=== PATIENT | male | born 1990 | race Caucasian/White ===

== ENCOUNTER 2023-03-22 15:41 | Emergency (ER) | payer MEDICAID, SELFPAY ==
[2023-03-22] VITALS (54 sets, daily range): BP systolic 116–224; BP diastolic 69–112; PULSE 71–95; RESP 0–24; TEMP 36.5; O2SAT 91–98
--- NOTE | 2023-03-22 15:30 | RT.EKG_ITS ---
APPROVED REPORT Exam: Resting ECG Reason for Exam: seizure Patient Location: E HR:87 bpm ECG Measurements Heart Rate 87 AXIS OK 190 P 42 QRSd 94 QRS 46 QT 429 T 178 QTc 517 Conclusion Sinus rhythm...normal P axis, V-rate 60- 99 Probable left atrial enlargement...P >50mS, <-0.10mV V1 Repol abnrm suggests ischemia, lateral leads...ST dep, T neg, I aVL V5 V6 Prolonged QT interval...QTc >488mS. Sinus. Normal axis. Less than 1mm ST depression in V6. No STEMI. I have reviewed and interpreted ECG and agree with software generated interpretation.
--- NOTE | 2023-03-22 15:30 | DI.CT_ITS ---
Exam(s) CT HEAD WO EXAM: CT HEAD WO CLINICAL HISTORY: seizure, recent bleed. TECHNIQUE: Imaging Protocol: Axial computed tomography images with coronal and sagittal reformatted images were created and reviewed COMPARISON: CR XR CHEST 1V IN DI DEPT from 03/22/2023 FINDINGS: Ventricles and Extra axial spaces: Normal in size and morphology for the patient's age. Hemorrhage: None. Cerebral parenchyma: There is an area of encephalomalacia involving the right parietal and right temp oral lobe. No evidence of an acute infarct is seen. Midline shift: None. Brainstem/Cerebellum: Normal. Calvarium: The patient has had a prior right parietal temporal craniotomy. No evidence of an acute c alvarial fracture. Visualized Paranasal sinuses/Mastoids: Clear. Soft Tissues: Unremarkable. IMPRESSION: 1. No acute intracranial process. 2. Findings were discussed with Dr. Nava at 4:10 p.m. on 03/22/2023. RADIATION DOSE DELIVERED: 838.85mGy.cm Total DLP DATA REPOSITORY: All CT scans at this facility are submitted to the National Radiology Data Registry (NRDR) Dose Index Registry (DIR) with the [employer] (ACR). RADIATION OPTIMIZATION: All CT scans at this facility use at least one of these dose optimization te chniques: automated exposure control; mA and/or kV adjustment per patient size (includes targeted exa ms where dose is matched to clinical indication); or iterative reconstruction.
--- NOTE | 2023-03-22 15:43 | DI.RAD_ITS ---
Exam(s) XR CHEST 1V IN DI DEPT EXAM: XR CHEST 1V IN DI DEPT CLINICAL HISTORY: seizure TECHNIQUE: 2D digital imaging was performed of the chest. One image was obtained. An AP view was ob tained. COMPARISON: No exams were available for comparison FINDINGS: MEDIASTINUM: Normal. HEART: Status post CABG. PULMONARY VASCULATURE: Normal. LUNGS: Clear. PLEURAL SPACE: No pleural effusion or pneumothorax. BONE:Within normal limits for the patient's age. Sternal wires are in place. OTHER FINDINGS:Normal. IMPRESSION: 1. No acute pulmonary findings. 2. Findings were discussed with Dr. Nava at 4:10 p.m. on 03/22/2023. DATA REPOSITORY: RADIATION DOSE DELIVERED:
--- NOTE | 2023-03-22 15:51 | W.ED.GENAD ---
Discharge Plan Disposition Specific Acute Inpt Facility: [facility] Discharge Details Chief Complaint: Seizure Clinical Impression: Seizure, Elevated blood pressure reading ED Provider: Norma Bosch Home Meds and New Rx's Prescriptions: No Action valsartan 160 mg Capsule 160 mg PO BID atorvastatin 80 mg Tablet 80 mg PO DAILY carvedilol 25 mg Tablet 37.5 mg PO BID diphenhydramine HCl 50 mg Tablet 50 mg PO QHS levetiracetam 500 mg Tablet 500 mg PO BID fexofenadine 60 mg Capsule 60 mg PO DAILY isosorbide dinitrate 30 mg Tablet 30 mg PO DAILY clonidine HCl 0.2 mg Tablet 0.2 mg PO PRN PRN lorazepam 0.5 mg Tablet 1 mg PO PRN PRN torsemide 100 mg Tablet 100 mg PO DAILY isosorbide dinitrate 40 mg Tablet 40 mg PO DAILY doxazosin 4 mg Tablet 4 mg PO QHS Nephro-Gagan 0.8 mg Tablet 1 tab PO DAILY hydralazine 50 mg Tablet 50 mg PO TID glucagon 1 mg Recon Soln 1 mg IM PRN PRN ondansetron 4 mg Tablet,Disintegrating 4 mg PO PRN PRN insulin aspart U-100 100 unit/mL (3 mL) Insulin Pen See Rx Instructions .ROUTE .COMPLEX Rx Instructions: sliding scale escitalopram oxalate 5 mg Tablet 10 mg PO QHS senna 8.6 mg Capsule 17.2 mg PO PRN PRN insulin glargine 100 unit/mL (3 mL) Insulin Pen 10 unit SUBCUT DAILY sevelamer carbonate 800 mg Tablet 2,400 mg PO TID cholecalciferol (vitamin D3) 50 mcg (2,000 unit) Capsule 50 mcg PO DAILY melatonin 5 mg Capsule 5 mg PO QHS aflibercept 2 mg/0.05 mL Solution 2 mg INTRAVITREAL Q6W (DME) Omnipod Classic PDM Kit(Gen 3) [facility] [place]ANEOUS Discharge Data Discharge Date/Time-TO BE ENTERED AT DEPARTURE: 03/22/23 21:26 Medical Decision Making Patient is a 32-year-old male presenting unresponsive and passenger side of mom's vehicle after having witnessed seizure. Patient does have a past medical history that includes seizures. Mom states that he has not had any recently. Past medical history is also pertinent for type 1 diabetes, CAD with CABG 2 years ago, CKD, underwent dialysis just prior to arrival, hypertension, hemorrhagic stroke. Per mom's report, mom and are both very involved in patient's medical care and he has been receiving his medications per typical regimen. We are getting this from [facility]. At the time I first saw the patient, he was awake and responsive but clearly postictal and confused with some bleeding at the corner of his mouth. No incontinence. 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 On exam, patient appears acutely ill. When in the car, he was able to open eyes to verbal stimuli but was not able to able to respond verbally. Did have some blood in sputum in the left corner of his mouth. No loss of bladder control noted. He does have a curling to the left hand suggesting weakness which mom states is chronic associated with his previous hemorrhagic stroke. Patient was a full assist out of the car with nursing staff onto a stretcher. Glucose was immediately checked and found to be 240 which is baseline for the patient. No respiratory distress was appreciated, lungs are clear and he is oxygenating well. He does seem to be waking and is able to protect his own airway. Patient was initially quite anxious and upset, confused in his postictal state. No evidence of IVDU, mom denies any alcohol or drug use. Patient did not fall, was seated with mom holding his head up while driving to the hospital, no injury. Mom states that the patient had reported headache prior to the onset of the seizure, I am concerned for recurrence of his hemorrhagic stroke particularly given timing. Will send patient for emergently to CT for Noncon head imaging. We will also obtain chest x-ray. Also considered potential ACS, hypertensive emergency, DKA, breakthrough seizure, medication noncompliance versus other. EKG obtained and reviewed by Dr. Nava with no acute ischemic etiology noted. Consulted with pharmacy regarding keppra after dialysis. Per mom, no post-dialysis Keppra is given routinely. UTD recommend 250mg post-dialysis, will discuss with neurology. Reviewed notes from [facility] where patient was admitted in mid December for DKA and altered mental status. Patient was noted to have difficult to control hypertension and was given nicardipine in the ED but transition to oral antihypertensives at the time of discharge. Patient's cerebral hemorrhage was in October 2022 with cranioplasty in December of this year. We will give patient 1 g Keppra now. Patient also received total of 2 mg of IV Ativan to be able to stay, for CT. At this was not given for recurrent seizure. CT scan reviewed by myself as well as radiologist with no acute abnormality noted. Imaging has been pushed to [facility] and [facility]. Glucose uptrending to 350. They gave corrective dose of 1 unit for every 30 points over 130, will give patient 7 units subcu NovoLog. This is his typical home regimen that has worked well for him historically. Patient is beginning to clear and is answering my questions although speech is still slightly slurred and quiet. Contacted by lab, has lactate of 6.9. Consult request to [facility] neurology after seizure, this is where patient has received neurologic care historically. His nephrology team is at [facility] and they advised that typically these patients are admitted at their dialysis home, will reach out to [facility] Spoke with Dr. Bolton, neurology at [facility]. She recommended increasing 500mg PO after dialysis MWF. Agreed with the 1g IV but nothing else acutely. requesting night time meds, gave typical hydralaazine, carvedelol, valsartan. Will hold evening Keppra to later hour. Repeat lactate down to 1.0 from 6.9. His troponin remains within normal limits. His blood pressure is downtrending and his systolic is now in the 170s which reports is corrected for being in the hospital. [facility] called by with EM physician, Dr. Edgar. We discussed this patient's history and he will accept the patient in and the ED to ED transfer. Discussed this plan with the patient and his and agreement. Patient is endorsing slight headache and will give IV acetaminophen Patient transferred via EMS to [facility] ED for contineud management. Patient and his in agreement with this plan. HPI General Date/Time Provider Initiated Documentation: 03/22/23 15:41. Limitations to Documentation: altered mental status (patient post ictal and non verbal on arrival). Information obtained by: family (mother gave initial information, added once here), RN notes reviewed and old records reviewed (obtained [facility] records). History of Present Illness 33 year old M presents to the emergency department with the chief complaint of witnessed seizure, described as similar to prior episodes (has had one other seizure, on Keppra at baseline, no missed doses), Patient started experiencing this minute(s) and it has been now resolved. No relieving factors improve symptom(s), Other factors that worsen symptoms (came on after stressful event at dialysis) . Patient did receive the following treatments prior to arrival, none Related Data Home Medications Medication Instructions Recorded Confirmed aflibercept 2 mg/0.05 mL 2 mg intravitreal Q6W 03/22/23 03/22/23 intravitreal solution for injection atorvastatin 80 mg tablet 80 mg PO DAILY 03/22/23 03/22/23 carvedilol 25 mg tablet 37.5 mg PO BID 03/22/23 03/22/23 cholecalciferol (vitamin D3) 50 50 mcg PO DAILY 03/22/23 03/22/23 mcg (2,000 unit) capsule clonidine HCl 0.2 mg tablet 0.2 mg PO PRN PRN 03/22/23 03/22/23 diphenhydramine HCl 50 mg tablet 50 mg PO QHS 03/22/23 03/22/23 doxazosin 4 mg tablet 4 mg PO QHS 03/22/23 03/22/23 escitalopram oxalate 5 mg tablet 10 mg PO QHS 03/22/23 03/22/23 fexofenadine 60 mg capsule 60 mg PO DAILY 03/22/23 03/22/23 glucagon 1 mg solution for 1 mg IM PRN PRN 03/22/23 03/22/23 injection hydralazine 50 mg tablet 50 mg PO TID 03/22/23 03/22/23 insulin aspart U-100 100 unit/mL See Rx Instructions .Route .COMPLEX 03/22/23 03/22/23 (3 mL) subcutaneous pen insulin glargine 100 unit/mL (3 10 unit subcut DAILY 03/22/23 03/22/23 mL) subcutaneous pen insulin pump controller, RF 03/22/23 03/22/23 isosorbide dinitrate 30 mg tablet 30 mg PO DAILY 03/22/23 03/22/23 isosorbide dinitrate 40 mg tablet 40 mg PO DAILY 03/22/23 03/22/23 levetiracetam 500 mg tablet 500 mg PO BID 03/22/23 03/22/23 lorazepam 0.5 mg tablet 1 mg PO PRN PRN 03/22/23 03/22/23 melatonin 5 mg capsule 5 mg PO QHS 03/22/23 03/22/23 ondansetron 4 mg disintegrating 4 mg PO PRN PRN 03/22/23 03/22/23 tablet sennosides 8.6 mg capsule (senna) 17.2 mg PO PRN PRN 03/22/23 03/22/23 sevelamer carbonate 800 mg tablet 2,400 mg PO TID 03/22/23 03/22/23 torsemide 100 mg tablet 100 mg PO DAILY 03/22/23 03/22/23 valsartan 160 mg capsule 160 mg PO BID 03/22/23 03/22/23 vitamin B complex-vitamin C-folic 1 tab PO DAILY 03/22/23 03/22/23 acid 0.8 mg tablet (Nephro-Gagan) Allergies Allergy/AdvReac Type Severity Reaction Status Date / Time insulin lispro Allergy Severe Other (See Unverified 03/22/23 16:33 Comment) Bleach (Sodium Hypochlorite) Allergy Other (See Unverified 03/22/23 16:33 Comment) Sulfa (Sulfonamide Allergy Other (See Unverified 03/22/23 16:33 Antibiotics) Comment) dexmedetomidine AdvReac Other (See Unverified 03/22/23 16:33 Comment) ketorolac [From Toradol] AdvReac Other (See Unverified 03/22/23 16:33 Comment) General Stated Complaint: Seizure [place]: 2 Review of Systems Narrative: unable to obtain secondary to mental status PFSH All Active Problems (Updated 03/28/23 @ 20:19 by ALFONZO Ly) Seizure (Acute) Elevated blood pressure reading (Acute) Social History Smoking risk assessment performed?: No Exam Const General: well developed, frail appearing and ill appearing acutely Nutritional Appearance: average body habitus and well nourished Orientation: awake and confused [facility] Head: normal to inspection Ears: hearing grossly normal bilaterally Mouth: moist mucous membranes and tongue abnormal (blood from bite, left side) Eyes General: appearance normal, both eyes and all related structures Pupils: PERRL Neck Neck: normal visual inspection, no lymphadenopathy and no meningeal signs Chest Chest: normal inspection of the chest, normal palpation of entire chest wall and no crepitus Resp Effort & Inspection: normal respiratory effort, able to speak in complete sentences and no respiratory distress Auscultation: clear to auscultation bilaterally, no rales, no rhonchi and no wheezes Cardio Rate: regular rate Rhythm: regular rhythm Heart Sounds: S1 normal and S2 normal GI Inspection: normal to inspection, no edema and non-distended Palpation: soft, no hepatosplenomegaly, not firm, no guarding, not rigid and nontender Skin General skin exam: no rashes or lesions noted Trauma: no lacerations or abrasions Neuro General: does not move all extremities (LLE weaker, less movement), patient confused and unable to assess gait Cognition: abnormal cognition Speech: abnormal speech slurred Gait: other (not assessed ) Plantar Reflexes: Upgoing: right and Equivocal: bilateral Extrem General: abnormal to inspection (thin, weak on left side), capillary refill normal, no pedal edema and no calf tenderness Course Vital Signs Vital signs: Vital Signs Temperature 36.5 C 03/22/23 15:42 Pulse 95 H 03/22/23 15:42 Respiratory Rate 22 03/22/23 15:42 Temperature 36.5 C 03/22/23 15:42 Temperature Source Temporal Artery Scan 03/22/23 15:42 Pulse 95 H 03/22/23 15:42 Respiratory Rate 22 03/22/23 15:42 Blood Pressure Position Sitting 03/22/23 15:42 Oxygen Delivery Method Room Air 03/22/23 15:42 Oxygen Flow Rate 0 03/22/23 15:42
[2023-03-22 16:09] LABS: Abs Immature Grans 0.02 10^3/uL (0.0-0.06); Absolute Basophil Count 0.04 10^3/uL (0.0-0.2); Absolute Eosinophil Count 0.17 10^3/uL (0.0-0.7); Absolute Monocyte Count 0.49 10^3/uL (0.1-0.8); Absolute Neutrophil Count 4.53 10^3/uL (1.2-6.7); Basophils % 0.7; Eosinophils % 2.8; HCT 33.5 % (40.0-50.0); Immature Grans % 0.3; Lymphocytes % 14.6; MCHC 32.8 % (32.0-36.0); MCV 91 fL (80-95); MPV 9.4 fL (8.0-11.0); Neutrophils % 73.6; Platelet Count 230 10^3/uL (130-400); RBC 3.67 10^6/uL (4.36-5.78); RDW 14.7 % (11.8-14.1); RDW-SD 49.1 fL; WBC 6.15 10^3/uL (4.4-10.8)
[2023-03-22 16:10] LABS: Lactate 6.9 mmol/L (0.6-1.4)
[2023-03-22] MEDS: LORazepam 2 MG/ML VIAL 1 MG IVP (16:12)
[2023-03-22 16:22] LABS: INR 1.1 (0.9-1.1); PTT Activated 22.1 sec (21.5-31.9); Prothrombin Time 10.8 sec (9.3-11.0)
[2023-03-22] MEDS: hydrALAZINE 20 MG/ML VIAL 10 MG IVP (16:23)
[2023-03-22] MEDS: levETIRAcetam 1,000 MG in Normal Saline 100 ML 400 MG IVPB (16:26)
[2023-03-22 16:29] LABS: Troponin I < 50 ng/L (<or=60)
[2023-03-22 16:36] LABS: ALT 31 U/L (16-63); AST 20 U/L (15-37); Albumin 4.4 g/dL (3.4-5.0); Alkaline Phosphatase 84 U/L (46-116); Anion Gap 18.1 mmol/L (3-11); BUN 38 mg/dL (7-18); Bilirubin, Total 0.7 mg/dL (0.2-1.0); CO2 21.9 mmol/L (21.0-32.0); Calcium 9.7 mg/dL (8.5-10.1); Chloride 98 mmol/L (98-107); Estimated GFR 11.05 (mL/min/1.73m2); Glucose 284 mg/dL (74-106); Potassium 3.9 mmol/L (3.5-5.1); Sodium 138 mmol/L (136-145); TSH (W/Ref FT4) 1.72 uIU/mL (0.36-3.74)
[2023-03-22 16:46] LABS: ETHANOL BLOOD < 3.0 mg/dL (<10)
[2023-03-22 16:48] LABS: CREATININE 6.4 mg/dL (0.70-1.30)
[2023-03-22] MEDS: Insulin Aspart 100 UNITS/ML UNIT 7 UNITS SC (16:52)
[2023-03-22] MEDS: cloNIDine 0.1 MG TAB 0.2 MG PO (17:13)
[2023-03-22 17:14] LABS: BE (Venous) 4 mmol/L (-2-3); HCO3 (Venous) 28 mmol/L (23-28); O2 Sat (Venous) 96 %; TCO2 (Venous) 26 mmol/L (24-29); pCO2 (Venous) 39 mmHg (41-51); pH (Venous) 7.45 (7.31-7.41); pO2 (Venous) 68 mmHg
[2023-03-22 18:53] LABS: Troponin I < 50 ng/L (<or=60)
[2023-03-22] MEDS: Carvedilol 12.5 MG TAB PO (19:11)
[2023-03-22] MEDS: Valsartan 80 MG TAB 160 MG PO (19:11)
[2023-03-22] MEDS: hydrALAZINE 25 MG TAB 50 MG PO (19:11)
[2023-03-22] MEDS: Carvedilol 25 MG TAB PO (19:11)
[2023-03-25 12:30] LABS: Levetiracetam <2.0 mcg/mL
== END 2023-03-22 21:26 ==
LOC: ER 16:42
PROVIDERS: Emergency Provider Physician Assistant
DX: G40.89 Other seizures (principal); R03.0 Elevated blood-pressure reading, without diagnosis of hypertension
CPT/HCPCS: 36416; 80053; 82805; 82962; 93005; 96365; 96372; 96375; 99285; 70450; 71045; 80177; 80320; 83605; 83735; 84443; 84484; 85025; 85610; 85730; 93010; 99284; J0131; J0360; J1815; J1953; J2060

== ENCOUNTER 2023-08-16 15:54 | Emergency (ER) | payer MEDICAID, SELFPAY ==
[2023-08-16] VITALS (21 sets, daily range): BP systolic 218; BP diastolic 106; PULSE 85–101; RESP 0–35; TEMP 37; O2SAT 94–98
--- NOTE | 2023-08-16 16:00 | DI.CT_ITS ---
Exam(s) CT ABDOMEN PELVIS W EXAM: CT ABDOMEN PELVIS W CLINICAL HISTORY: Right lower quadrant pain TECHNIQUE: Imaging Protocol: Axial computed tomography images with coronal and sagittal reformatted images were created and reviewed CONTRAST MATERIAL: Intravenous: Omnipaque 350 Contrast volume:98 mL Oral: No COMPARISON: No exams were available for comparison FINDINGS: The examination is limited due to patient motion artifact. ABDOMEN: Lung Bases: Normal where visualized. Liver: Normal density. No measurable mass. Portal, Superior Mesenteric, and Splenic Veins: Unremarkable. Gallbladder and Biliary Tract: No radiodense calculus or dilation. Pancreas: Normal density, no abnormal calcifications or inflammatory process. Spleen: Normal. Adrenals: No masses seen. Kidneys: Normal size, contour and axis. There is delayed enhancement of the right kidney and moderate dilatation of the renal pelvis and ureter. No calcified ureteral stone is seen. The left kidney an d ureter are unremarkable. No masses seen. Abdominal Aorta: Abdominal portion non-dilated. There is extensive atherosclerosis. Bowel: No obstruction or bowel wall thickening. There are calcifications seen in the right lower quad rant adjacent to the cecum which may reflect a prior appendectomy. There is no evidence of acute camille endicitis. Peritoneal Cavity: There is a trace amount of free fluid in the pelvis. No free air. Lymph Nodes: Within normal limits. Bones: Within normal limits for the patient's age. Soft Tissues: Unremarkable. PELVIS: Bladder: There is diffuse thickening of the wall of the urinary bladder. Reproductive Organs: Unremarkable as visualized. Lymph Nodes: Within normal limits. Bones: Within normal limits for the patient's age. IMPRESSION: 1. Delayed enhancement of the right kidney with dilatation of the right renal pelvis and ureter. No calcified ureteral stone is seen. Differential considerations include noncalcified stone causing obs truction, a recently passed stone or infection. 2. Diffuse thickening of the wall of the urinary bladder. This may be due to underdistention however cystitis should also be considered. 3. Status post appendectomy. 4. Extensive arterial calcification. This can be seen in diabetic patients. 5. Findings were discussed with Dr. Morris at 6 p.m. on 08/16/2023. RADIATION DOSE DELIVERED: 927.65mGy.cm Total DLP DATA REPOSITORY: All CT scans at this facility are submitted to the National Radiology Data Registry (NRDR) Dose Index Registry (DIR) with the [employer] (ACR). RADIATION OPTIMIZATION: All CT scans at this facility use at least one of these dose optimization te chniques: automated exposure control; mA and/or kV adjustment per patient size (includes targeted exa ms where dose is matched to clinical indication); or iterative reconstruction.
--- NOTE | 2023-08-16 16:07 | W.ED.GENAD ---
Discharge Plan Disposition Patient Disposition: Home Discharge Details Clinical Impression: Acute right lower quadrant pain, Hydronephrosis of right kidney Primary Care Provider: Unknown,Unknown ED Provider: Darius Morris [place] Meds and New Rx's Prescriptions: Continued valsartan 160 mg Capsule 160 mg PO BID atorvastatin 80 mg Tablet 80 mg PO DAILY carvedilol 25 mg Tablet 37.5 mg PO BID diphenhydramine HCl 50 mg Tablet 50 mg PO QHS levetiracetam 500 mg Tablet 500 mg PO BID fexofenadine 60 mg Capsule 60 mg PO DAILY isosorbide dinitrate 30 mg Tablet 30 mg PO DAILY clonidine HCl 0.2 mg Tablet 0.2 mg PO PRN PRN lorazepam 0.5 mg Tablet 1 mg PO PRN PRN torsemide 100 mg Tablet 100 mg PO DAILY isosorbide dinitrate 40 mg Tablet 40 mg PO DAILY doxazosin 4 mg Tablet 4 mg PO QHS Nephro-Gagan 0.8 mg Tablet 1 tab PO DAILY hydralazine 50 mg Tablet 50 mg PO TID glucagon 1 mg Recon Soln 1 mg IM PRN PRN ondansetron 4 mg Tablet,Disintegrating 4 mg PO PRN PRN insulin aspart U-100 100 unit/mL (3 mL) Insulin Pen See Rx Instructions .ROUTE .COMPLEX Rx Instructions: sliding scale escitalopram oxalate 5 mg Tablet 10 mg PO QHS senna 8.6 mg Capsule 17.2 mg PO PRN PRN insulin glargine 100 unit/mL (3 mL) Insulin Pen 10 unit SUBCUT DAILY sevelamer carbonate 800 mg Tablet 2,400 mg PO TID cholecalciferol (vitamin D3) 50 mcg (2,000 unit) Capsule 50 mcg PO DAILY melatonin 5 mg Capsule 5 mg PO QHS aflibercept 2 mg/0.05 mL Solution 2 mg INTRAVITREAL Q6W (DME) insulin pump controller, RF Misc MISCELLANEOUS Discharge Instructions Instructions: Abdominal Pain (ED) Additional Instructions: You were seen in the emergency department for your right lower quadrant pain. Your CAT scan showed that your ureter was slightly dilated on the right showing signs of a recently passed kidney stone or kidney stone that does not show up on CT scan. If you develop a fever or worsening pain or cannot eat or drink as result of nausea or vomiting please return to the emergency department. For your pain please take medications as follows: 1. Take acetaminophen (Tylenol), 1,000 mg (two 500 mg tabs) every 6 hours. Medical Decision Making This is an uncomfortable appearing hypertensive but normothermic and not tachycardic 33-year-old dialysis dependent male with history of type 1 diabetes with right lower quadrant pain remote appendectomy concerning for diverticulitis versus mesenteric ischemia versus urinary tract infection. No pain out of proportion to suggest necrotizing soft tissue infection. Appendicitis less likely given remote appendectomy. No right upper quadrant tenderness to suggest acute cholecystitis. Patient has had prior urinary tract infections so UTI certainly a possibility. No chest pain to suggest ACS. No rash to abdomen to suggest zoster. No left upper quadrant tenderness to suggest splenic arterial aneurysm. No history of ulcerative colitis or Crohn's to suggest flare of IBD. Given concern for possibility of mesenteric ischemia will obtain a lactate and CT scan and treat pain with fentanyl for pain and nausea with ondansetron. Given dialysis session today my suspicion for hyperkalemia is low so I did not obtain an ECG. No hypotension no history of AAA to suggest ruptured AAA. Ureterolithiasis possible however the patient is not having flank pain making this less likely. 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 4:42 PM Mild normocytic anemia improved compared to prior. Normal reassuring lactate. 5:08 PM Labs significant for mild hypercalcemia with a serum calcium of 10.4. This does not seem significant enough to be causing the patient's symptoms. Given his dependence on dialysis will defer fluids at this point in time. 6:25 PM Patient had enhancement of the right kidney with dilatation of the right renal pelvis and ureter concerning for possibility of recently passed stone though no ureteral lithiasis was seen. Radiology noted that the patient could be obstructed with a noncalcified stone. There is also bladder wall thickening concerning for the possibility of urinary tract infection. On urinalysis patient did have moderate blood but was nitrite negative leuk esterase negative making my suspicion low for acute cystitis. Microscopy pending. 6:41 PM I met with the patient and his . Patient was having improved pain. Given right ureteral dilation it certainly possible that the patient recently has passed a stone. His pain was well controlled at the moment. Will advise outpatient acetaminophen. He has outpatient ondansetron to take. We will complete a p.o. trial in the ED. Given no signs of cystitis no indication for hospitalization or antibiotics. We will proceed with empiric trial of expectant outpatient management. Will advise ED return if he develops fevers worsening pain or any vomiting that prevents him from tolerating p.o.Microscopy with no bacteriuria. Vital signs notable for marked hypertension which is similar to prior results. 8:07 PM Patient tolerated p.o. in the ED and was discharged with strict return indications. HPI General Date/Time Provider Initiated Documentation: 08/16/23 16:05. HPI Narrative: This is a 33-year-old dialysis dependent male with type 1 diabetes and prior IA and CVA now in the emergency department with his in the setting of right lower quadrant pain which occurred after dialysis today. Patient has been intermittently vomiting all week. He has remote history of an appendectomy. He has had no diarrhea. He denies black or bloody stools. He has not recently taken any falls. He frequently has elevated blood pressure not infrequently. He has reportedly had a remote urinary tract infection. Use he has had no dysuria. He has not had a bowel movement in the past 2 days. His pain began at 9 AM and intermittently radiates to his left lower quadrant. He has had ureterolithiasis in the past but never had any urological procedures. Related Data Home Medications Medication Instructions Recorded Confirmed aflibercept 2 mg/0.05 mL 2 mg intravitreal Q6W 03/22/23 08/16/23 intravitreal solution for injection atorvastatin 80 mg tablet 80 mg PO DAILY 03/22/23 08/16/23 carvedilol 25 mg tablet 37.5 mg PO BID 03/22/23 08/16/23 cholecalciferol (vitamin D3) 50 50 mcg PO DAILY 03/22/23 08/16/23 mcg (2,000 unit) capsule clonidine HCl 0.2 mg tablet 0.2 mg PO PRN PRN 03/22/23 08/16/23 diphenhydramine HCl 50 mg tablet 50 mg PO QHS 03/22/23 08/16/23 doxazosin 4 mg tablet 4 mg PO QHS 03/22/23 08/16/23 escitalopram oxalate 5 mg tablet 10 mg PO QHS 03/22/23 08/16/23 fexofenadine 60 mg capsule 60 mg PO DAILY 03/22/23 08/16/23 glucagon 1 mg solution for 1 mg IM PRN PRN 03/22/23 08/16/23 injection hydralazine 50 mg tablet 50 mg PO TID 03/22/23 08/16/23 insulin aspart U-100 100 unit/mL See Rx Instructions .Route .COMPLEX 03/22/23 08/16/23 (3 mL) subcutaneous pen insulin glargine 100 unit/mL (3 10 unit subcut DAILY 03/22/23 08/16/23 mL) subcutaneous pen insulin pump controller, RF 03/22/23 08/16/23 isosorbide dinitrate 30 mg tablet 30 mg PO DAILY 03/22/23 08/16/23 isosorbide dinitrate 40 mg tablet 40 mg PO DAILY 03/22/23 08/16/23 levetiracetam 500 mg tablet 500 mg PO BID 03/22/23 08/16/23 lorazepam 0.5 mg tablet 1 mg PO PRN PRN 03/22/23 08/16/23 melatonin 5 mg capsule 5 mg PO QHS 03/22/23 08/16/23 ondansetron 4 mg disintegrating 4 mg PO PRN PRN 03/22/23 08/16/23 tablet sennosides 8.6 mg capsule (senna) 17.2 mg PO PRN PRN 03/22/23 08/16/23 sevelamer carbonate 800 mg tablet 2,400 mg PO TID 03/22/23 08/16/23 torsemide 100 mg tablet 100 mg PO DAILY 03/22/23 08/16/23 valsartan 160 mg capsule 160 mg PO BID 03/22/23 08/16/23 vitamin B complex-vitamin C-folic 1 tab PO DAILY 03/22/23 08/16/23 acid 0.8 mg tablet (Nephro-Gagan) Allergies Allergy/AdvReac Type Severity Reaction Status Date / Time insulin lispro Allergy Severe Other (See Unverified 08/16/23 18:27 Comment) Bleach (Sodium Hypochlorite) Allergy Other (See Unverified 08/16/23 18:27 Comment) Sulfa (Sulfonamide Allergy Other (See Unverified 08/16/23 18:27 Antibiotics) Comment) dexmedetomidine AdvReac Other (See Unverified 08/16/23 18:27 Comment) ketorolac [From Toradol] AdvReac Other (See Unverified 08/16/23 18:27 Comment) General Stated Complaint: Abd Prob [place]: 3 PFSH All Active Problems (Updated 08/16/23 @ 18:41 by Darius Morris MD) Acute right lower quadrant pain (Acute) Hydronephrosis of right kidney (Acute) Social History Smoking/Tobacco Use Status: Never Smoking risk assessment performed?: Yes Alcohol Intake: current Drug use: Never Substance use type: does not use Housing: house Do you feel safe at home: Yes Do you feel safe in your relationship?: Yes Exam Narrative Exam Narrative: General: Uncomfortable-appearing in no acute distress speaking in complete sentences. Head: Normocephalic, atraumatic. Eye: . Extraocular eye movements intact. No conjunctival injection. No scleral icterus. Ear, nose, mouth, throat: Grossly normal inspection. Normal voice, handling secretions normally. Neck: Trachea midline. Cardiovascular: Well-perfused distal extremities. Regular rate and rhythm. Respiratory: Nonlabored respiration. Clear lungs bilaterally. Gastrointestinal: Nondistended abdomen. Soft minimally tender abdomen and right lower quadrant. No rebound. No guarding. Musculoskeletal: No significant lower extremity pitting edema. Moving all 4 extremities spontaneously. Skin: Normal for age and race, grossly normal temperature and turgor. No acute rash. Neurologic: Alert and appropriate, no apparent acute deficits. Psychiatric: Mood and manner are appropriate. Grooming and personal hygiene are appropriate. Course Vital Signs Vital signs: Vital Signs Temperature 37.0 C 08/16/23 15:57 Pulse 85 08/16/23 15:57 Respiratory Rate 08/16/23 15:57 Blood Pressure 218/106 H 08/16/23 15:57 Pulse Oximetry 97 08/16/23 15:57 Temperature 37.0 C 08/16/23 15:57 Temperature Source Skin 08/16/23 15:57 Pulse 85 08/16/23 15:57 Respiratory Rate 08/16/23 15:57 Blood Pressure 218/106 H 08/16/23 15:57 Blood Pressure Position Sitting 08/16/23 15:57 Pulse Oximetry 97 08/16/23 15:57 Oxygen Delivery Method Room Air 08/16/23 15:57 Oxygen Flow Rate 0 08/16/23 15:57
[2023-08-16] MEDS: Ondansetron 4 MG/2 ML VIAL IVP (16:27)
[2023-08-16] MEDS: fentaNYL 100 MCG/2 ML VIAL 50 MCG IVP (16:27)
[2023-08-16 16:38] LABS: Abs Immature Grans 0.03 10^3/uL (0.0-0.06); Absolute Basophil Count 0.05 10^3/uL (0.0-0.2); Absolute Eosinophil Count 0.07 10^3/uL (0.0-0.7); Absolute Lymphocyte Count 0.74 10^3/uL (1.2-3.4); Absolute Monocyte Count 0.25 10^3/uL (0.1-0.8); Absolute Neutrophil Count 6.13 10^3/uL (1.2-6.7); Basophils % 0.7; HCT 39.4 % (40.0-50.0); HGB 13.1 g/dL (13.5-17.5); Immature Grans % 0.4; Lactate 1.1 mmol/L (0.6-1.4); Lymphocytes % 10.2; MCH 28.2 pg (27.0-33.0); MCHC 33.2 % (32.0-36.0); MCV 85 fL (80-95); MPV 9.3 fL (8.0-11.0); Monocytes % 3.4; Neutrophils % 84.3; Platelet Count 197 10^3/uL (130-400); RBC 4.65 10^6/uL (4.36-5.78); RDW 12.6 % (11.8-14.1); RDW-SD 38.7 fL; WBC 7.27 10^3/uL (4.4-10.8)
[2023-08-16 16:55] LABS: Anion Gap 15.3 mmol/L (3-11); BUN 29 mg/dL (7-18); CO2 26.7 mmol/L (21.0-32.0); Calcium 10.4 mg/dL (8.5-10.1); Chloride 96 mmol/L (98-107); Estimated GFR 9.54 (mL/min/1.73m2); Glucose 233 mg/dL (74-106); Potassium 4.3 mmol/L (3.5-5.1); Sodium 138 mmol/L (136-145)
[2023-08-16 16:59] LABS: CREATININE 7.2 mg/dL (0.70-1.30)
[2023-08-16] MEDS: Normal Saline Flush 10 ML SYR IVP (17:13)
[2023-08-16 18:11] LABS: Bilirubin Negative (Negative); Blood Moderate (Negative); Clarity Clear (Clear); Glucose 250 mg/dL (Negative); Ketones Negative (Negative); Leukocyte Esterase Negative (Negative); Nitrite Negative (Negative); Specific Gravity 1.025 (1.005-1.025); Urobilinogen 0.2 mg/dL (Up to 0.2); pH 5.5 (5-8)
[2023-08-16 18:29] LABS: Bacteria Negative HPF (Negative); C & S Indicated? No; Casts 0-2 Hyaline LPF (Negative); Crystals Negative HPF (Negative); Epithelial Cells Rare HPF (Negative); Mucus Moderate (Negative); Other Cells Negative (Negative); RBC >50 HPF (0-2); WBC 0-2 HPF (0-5)
[2023-08-16] MEDS: Acetaminophen 500 MG TAB 1000 MG PO (18:45)
== END 2023-08-16 20:18 | disposition home or self-care (01) ==
PROVIDERS: Emergency Provider Emergency Medicine
DX: N13.30 Unspecified hydronephrosis (principal); E10.22 Type 1 diabetes mellitus with diabetic chronic kidney disease; I12.0 Hypertensive chronic kidney disease with stage 5 chronic kidney disease or end stage renal disease; N18.6 End stage renal disease; I25.2 Old myocardial infarction; G40.909 Epilepsy, unspecified, not intractable, without status epilepticus; Z99.2 Dependence on renal dialysis; Z96.41 Presence of insulin pump (external) (internal); Z86.73 Personal history of transient ischemic attack (TIA), and cerebral infarction without residual deficits
CPT/HCPCS: 36415; 80048; 96374; 96375; 99285; 74177; 81003; 81015; 83605; 85025; 99284; J2405; J3010